=== PATIENT | female | born 1970 | race Caucasian/White ===

== ENCOUNTER 2020-03-19 15:19 | Outpatient (REF) | payer BC, SELFPAY ==
--- NOTE | 2020-03-19 14:00 | PAPFT_PTH ---
PATIENT: Carol Urbina LOC: TRAN U#:[id number] AGE/SX: 49/F ROOM: RE03/19/[address]: Camille Hadley NP : 1970 BED: DIS: 03/19/2020 SPEC #: [id number] RECD: 03/20/20 12:55 STATUS: BAHMAN CANTU #: [id number] FUNMILAYO: 03/19/20 14:[address]: Camille Hadley NP DEPT: [facility] Cytology RECD BY: Alannah Hernandez ENTERED: 03/20/20 12:55 SP TYPE: PAPFT BERNARD DR: Soha Minor Tissues: 1 - CX/ENDOCX FOR PAP SMEARS Procedures: PAP THIN PREP/UVM Screening HPV DNA PROBE Comments: [id number]
== END 2020-03-19 15:39 ==
LOC: LBN 15:19
PROVIDERS: PCP Nurse Practitioner; Visit Provider Nurse Practitioner Women's Health
DX: Z12.4 Encounter for screening for malignant neoplasm of cervix (principal); Z11.51 Encounter for screening for human papillomavirus (HPV)
CPT/HCPCS: 88142; 87624

== ENCOUNTER 2020-03-25 02:18 | Outpatient (CLI) | payer BC, SELFPAY ==
--- NOTE | 2020-03-25 13:00 | DI.MAMMO_ITS ---
EXAM: MG MAMMO SCREENING CLINICAL HISTORY: screening TECHNIQUE: Bilateral full field digital CC and MLO mammographic images were obtained with 3D tomosyn thesis and utilizing computer aided detection (CAD). COMPARISON: Available for comparison. FINDINGS: Masses/Architectural Distortion: None seen. Microcalcifications: No suspicious pleomorphic-type are seen. Skin Thickening/Nipple Retraction: None. IMPRESSION: 1. No significant interval change with no specific features of malignancy noted. 2. Unless there is more urgent need, screening mammography is recommended, as per [place] [employer] guidelines. BI-RADS Category 1 - Negative Breast Density - Category C - Heterogeneously dense The mammogram demonstrates the patient's breast tissue is dense. Dense breast tissue is very common a nd is not abnormal but dense breast tissue can make it harder to find cancer on a mammogram. Also, de nse breast tissue may increase their breast cancer risk. This information about the result of the [facility] mogram report was provided to the patient to raise their awareness. Use this report when you speak wi th the patient about their risks for breast cancer, which includes their family history. At that time , you may recommend for more screening tests (Ultrasound or MRI) as they might be useful based on the ir risk. A negative radiographic report should not delay biopsy if a dominant or clinically suspicious mass is present. Up to ten percent of cancers are not identified on mammography. A negative report may reinforce clinical impression. Adenosis and dense breasts may obscure an underlying neoplasm. False positive reports average 6 to 10%. Patient will receive a letter notifying them of these results.
== END 2020-03-25 02:38 ==
PROVIDERS: PCP Family Medicine; Visit Provider Nurse Practitioner Women's Health
DX: Z12.31 Encounter for screening mammogram for malignant neoplasm of breast (principal)
CPT/HCPCS: 77063; 77067

== ENCOUNTER 2020-06-26 14:22 | Outpatient (REF) | payer BC, SELFPAY ==
--- NOTE | 2020-06-26 14:00 | ENDOMET_PTH ---
PATIENT: Carol Urbina LOC: LBN U#:[id number] AGE/SX: 49/F ROOM: RE06/26/[address]: Camille Hadley NP : 1970 BED: DIS: 06/26/2020 SPEC #: [id number] RECD: 06/26/20 16:39 STATUS: BAHMAN REQ #: [id number] FUNMILAYO: 06/26/20 14:[address]: Camille Hadley NP DEPT: Surgical Specimen RECD BY: Alaina Puckett ENTERED: 06/26/20 16:40 SP TYPE: Endomet OTHR DR: Sherron Fry Tissues: 1 - ENDOMETRIUM BX/NITO Procedures: GROSS AND MICRO LEVEL 4 Comments: [id number]
== END 2020-06-26 14:42 ==
LOC: LBN 14:22
PROVIDERS: PCP Family Medicine; Visit Provider Nurse Practitioner Women's Health
DX: Z12.4 Encounter for screening for malignant neoplasm of cervix (principal); Z87.42 Personal history of other diseases of the female genital tract; N85.00 Endometrial hyperplasia, unspecified
CPT/HCPCS: 88305

== ENCOUNTER 2020-07-09 00:29 | Outpatient (CLI) | payer BC, SELFPAY ==
--- NOTE | 2020-07-09 07:45 | DI.US_ITS ---
EXAM: US PELVIS TRANSVAGINAL CLINICAL HISTORY: Mennorhagia, hx fibroids,N92.0. TECHNIQUE: Transabdominal and transvaginal pelvic ultrasound was performed using standard protocol. COMPARISON: US PELVIS TRANSVAG from 07/11/2013 FINDINGS: KIDNEYS: Kidneys are symmetric in size. No evidence of renal calculi. No evidence of hydronephrosis. No renal mass or cyst identified. UTERUS: Position: Retroverted Size: 11.4 long by 7.4 AP by 8.5 transverse cm Endometrium: 1.1 cm. Normal for patient's menstrual status. Myometrium: Numerous uterine fibroids are identified. The largest measured is 2.6 x 3.1 x 2.9 cm. Cervix: There does appear to be a 2.1 x 1.8 x 2.6 cm cervical fibroid. OVARIES: Right: 2.9 x 1.7 x 1.3 cm Cyst or mass: Small follicular cysts. Left: 4.2 x 2.3 x 2.5 cm Cyst or mass: 2.6 x 2.6 x 2.6 cm hypoechoic cyst with internal debris. This may represent a hemorrha gic cyst. DOPPLER: Color: Symmetric and uniform flow to both ovaries. No hyperemia. CUL-DE-SAC: Free fluid: Small amount of free pelvic fluid. Other: None. IMPRESSION: 1. Normal sonographic appearance of the kidneys. 2. Enlarged fibroid uterus. An MRI of the pelvis may also be considered to characterize the uterine fibroids. 3. 2.6 cm complex left ovarian cyst. This likely reflects a hemorrhagic cyst. DATA REPOSITORY:
== END 2020-07-09 00:49 ==
PROVIDERS: PCP Family Medicine; Visit Provider Nurse Practitioner Women's Health
DX: N92.0 Excessive and frequent menstruation with regular cycle (principal); D25.9 Leiomyoma of uterus, unspecified; N83.292 Other ovarian cyst, left side
CPT/HCPCS: 76830; 76856

== ENCOUNTER 2021-04-14 12:47 | Outpatient (REF) | payer BC, SELFPAY ==
--- NOTE | 2021-04-14 11:30 | PAPFT_PTH ---
PATIENT: Carol Urbina LOC: KUNAL U#:[id number] AGE/SX: 50/F ROOM: RE04/14/[address]: Camille Hadley NP : 1970 BED: DIS: 04/14/2021 SPEC #: [id number] RECD: 04/14/21 13:14 STATUS: BAHMAN CANTU #: [id number] FUNMILAYO: 04/14/21 11:[address]: Camille Hadley NP DEPT: [facility] Cytology RECD BY: Alannah Hernandez ENTERED: 04/14/21 13:15 SP TYPE: PAPFT OTHR DR: Sherron Fry Tissues: 1 - CX/ENDOCX FOR PAP SMEARS Procedures: PAP THIN PREP/UVM Screening HPV DNA PROBE Comments: [id number]
== END 2021-04-14 12:48 | disposition home or self-care (01) ==
LOC: LBN 12:47
PROVIDERS: PCP Family Medicine; Visit Provider Nurse Practitioner Women's Health
DX: Z12.4 Encounter for screening for malignant neoplasm of cervix (principal); Z11.51 Encounter for screening for human papillomavirus (HPV)
CPT/HCPCS: 88142; 87624

== ENCOUNTER 2021-04-16 01:32 | Outpatient (CLI) | payer BC, SELFPAY ==
--- NOTE | 2021-04-16 08:00 | DI.MAMMO_ITS ---
Exam(s) MAMMO SCREENING EXAM: MAMMO SCREENING CLINICAL HISTORY: screening, Z12.39. TECHNIQUE: Bilateral full field digital CC and MLO mammographic images were obtained with 3D tomosyn thesis and utilizing computer aided detection (CAD). COMPARISON: Prior mammograms dating back to 2013, the most recent being March 2020. FINDINGS: The fibroglandular tissue pattern is again noted be quite dense, this decreasing the sensitivity of t he mammogram for finding hidden underlying lesions. There are no new obvious spiculated masses nor malignant-appearing microcalcification groups in eithe r breast. A few benign microcalcifications are again noted. There is no significant architectural distortion nor skin thickening-retraction. IMPRESSION: Quite dense bilateral fibroglandular tissue. No obvious radiographic evidence of malignancy nor sign ificant change compared to prior studies listed above. Given the density of this patient's fibroglandular tissue I feel would be prudent to perform screenin g bilateral breast ultrasound. BI-RADS Category 2 - Benign Findings Breast Density - Category D - Extremely dense Breast density Category C or D implies that the patient has dense breast tissue. Dense breast tissue can make it harder to find cancer on a mammogram. Dense breast tissue is also associated with an incr eased risk of breast cancer. This information about the result of the mammogram report was provided to the patient to raise their awareness. Use this report when you speak with the patient about their risks for breast cancer, which includes their family history. At that time, you may recommend additional screening tests (Ultrasoun d or MRI) as these tests may add significant information. A negative radiographic report should not delay biopsy if a dominant or clinically suspicious mass is present. Up to ten percent of cancers are not identified on mammography. A negative report may reinforce clinical impression. Adenosis and dense breasts may obscure an underlying neoplasm. False positive reports average 6 to 10%. Patient will receive a letter notifying them of these results.
== END 2021-04-16 01:52 ==
PROVIDERS: PCP Family Medicine; Visit Provider Nurse Practitioner Women's Health
DX: Z12.31 Encounter for screening mammogram for malignant neoplasm of breast (principal); R92.8 Other abnormal and inconclusive findings on diagnostic imaging of breast
CPT/HCPCS: 77063; 77067

== ENCOUNTER → 2022-05-12 02:44 | Outpatient (CLI) | payer BC, SELFPAY ==
--- NOTE | 2022-05-12 07:39 | DI.MAMMO_ITS ---
Exam(s) MAMMO SCREENING EXAM: MAMMO SCREENING CLINICAL HISTORY: screening TECHNIQUE: Bilateral full field digital CC and MLO mammographic images were obtained with 3D tomosyn thesis and utilizing computer aided detection (CAD). COMPARISON: Available for comparison. FINDINGS: Masses/Architectural Distortion: None seen. Microcalcifications: No suspicious pleomorphic-type are seen. Skin Thickening/Nipple Retraction: None. IMPRESSION: 1. No significant interval change with no specific features of malignancy noted. 2. Unless there is more urgent need, screening mammography is recommended, as per [place] [employer] guidelines. BI-RADS Category 1 - Negative Breast Density - Category D - Extremely dense Breast density category C or D implies that the patient has dense breast tissue. Dense breast tissue is very common and is not abnormal but dense breast tissue can make it harder to find cancer on a ma mmogram. Also, dense breast tissue may increase their breast cancer risk. This information about the result of the mammogram report was provided to the patient to raise their awareness. Use this report when you speak with the patient about their risks for breast cancer, which includes their family hist ory. At that time, you may recommend for more screening tests (Ultrasound or MRI) as they might be us eful based on their risk. A negative radiographic report should not delay biopsy if a dominant or clinically suspicious mass is present. Up to ten percent of cancers are not identified on mammography. A negative report may reinforce clinical impression. Adenosis and dense breasts may obscure an underlying neoplasm. False positive reports average 6 to 10%. Patient will receive a letter notifying them of these results.
== END ==
PROVIDERS: PCP Family Medicine; Visit Provider Nurse Practitioner Women's Health
DX: Z12.31 Encounter for screening mammogram for malignant neoplasm of breast (principal)
CPT/HCPCS: 77063; 77067

== ENCOUNTER 2022-05-13 15:00 | Outpatient (REF) | payer BC, SELFPAY ==
[2022-05-13 15:36] LABS: Calculated LDL 158 mg/dL (<100); Cholesterol 275 mg/dL (<200); HDL Cholesterol 103 mg/dL (40-60); Triglyceride 72 mg/dL (<150)
== END 2022-05-13 15:01 | disposition home or self-care (01) ==
LOC: NCHCN 15:00
PROVIDERS: PCP Family Medicine; Visit Provider Family Medicine
DX: Z00.00 Encounter for general adult medical examination without abnormal findings (principal); Z13.220 Encounter for screening for lipoid disorders
CPT/HCPCS: 80061

== ENCOUNTER 2023-05-13 02:49 | Outpatient (CLI) | payer BC, SELFPAY ==
--- NOTE | 2023-05-13 07:33 | DI.MAMMO_ITS ---
Exam(s) MAMMO SCREENING EXAM: MAMMO SCREENING CLINICAL HISTORY: screening. TECHNIQUE: Bilateral full field digital CC and MLO mammographic images were obtained with 3D tomosyn thesis and utilizing computer aided detection (CAD). COMPARISON: Prior mammograms were reviewed. FINDINGS: The fibroglandular tissue pattern is again noted be quite dense which decreases the sensitivity of th e mammogram for finding hidden underlying lesions. There are no obvious new spiculated masses nor malignant appearing microcalcification groups. Benign-appearing microcalcifications are again noted bilaterally. There is no significant architectural distortion nor skin thickening-retraction. IMPRESSION: Dense bilateral fibroglandular tissue. No obvious radiographic evidence of malignancy. BI-RADS Category 1 - Negative Breast Density - Category D - Extremely dense Breast density Category C or D implies that the patient has dense breast tissue. Dense breast tissue can make it harder to find cancer on a mammogram. Dense breast tissue is also associated with an incr eased risk of breast cancer. This information about the result of the mammogram report was provided to the patient to raise their awareness. Use this report when you speak with the patient about their risks for breast cancer, which includes their family history. At that time, you may recommend additional screening tests (Ultrasoun d or MRI) as these tests may add significant information. A negative radiographic report should not delay biopsy if a dominant or clinically suspicious mass is present. Up to ten percent of cancers are not identified on mammography. A negative report may reinforce clinical impression. Adenosis and dense breasts may obscure an underlying neoplasm. False positive reports average 6 to 10%. Patient will receive a letter notifying them of these results.
== END 2023-05-13 03:09 ==
LOC: DI 02:49
PROVIDERS: PCP Family Medicine; Visit Provider Nurse Practitioner Women's Health
DX: Z12.31 Encounter for screening mammogram for malignant neoplasm of breast (principal)
CPT/HCPCS: 77063; 77067

== ENCOUNTER 2024-05-09 11:52 | Outpatient (REF) | payer BC, SELFPAY ==
--- NOTE | 2024-05-09 11:30 | PAPFT_PTH ---
PATIENT: Carol Urbina LOC: KUNAL U#:[id number] AGE/SX: 53/F ROOM: RE05/09/[address]: Camille Hadley NP : 1970 BED: DIS: 05/09/2024 SPEC #: [id number] RECD: 05/09/24 13:19 STATUS: BAHMAN CANTU #: [id number] FUNMILAYO: 05/09/24 11:[address]: Camille Hadley NP DEPT: [facility] Cytology RECD BY: Alannah Hernandez ENTERED: 05/09/24 13:19 SP TYPE: PAPFT OTHR DR: Sherron Fry Tissues: 1 - CX/ENDOCX FOR PAP SMEARS Procedures: PAP THIN PREP/UVM Screening HPV DNA PROBE Comments: [id number] (HPV 16 & 18/45)
== END 2024-05-09 11:53 | disposition home or self-care (01) ==
LOC: LBN 11:52
PROVIDERS: PCP Family Medicine; Visit Provider Nurse Practitioner Women's Health
DX: Z01.419 Encounter for gynecological examination (general) (routine) without abnormal findings (principal); D25.9 Leiomyoma of uterus, unspecified; Z12.4 Encounter for screening for malignant neoplasm of cervix
CPT/HCPCS: 88142; 87624

== ENCOUNTER 2025-05-30 01:38 | Outpatient (CLI) | payer OTHER, SELFPAY ==
--- NOTE | 2025-05-30 12:00 | DI.MAMMO_ITS ---
Exam(s) MAMMO SCREENING EXAM: MAMMO SCREENING CLINICAL HISTORY: screening TECHNIQUE: Bilateral full field digital CC and MLO mammographic images were obtained with 3D tomosynthesis and utilizing computer aided detection (CAD). COMPARISON: Comparison is made with prior examinations. FINDINGS: Masses/Architectural Distortion: No suspicious masses or areas of architectural distortion are present. Microcalcifications: No suspicious pleomorphic-type are seen. Skin Thickening/Nipple Retraction: None. IMPRESSION: 1. No significant interval change with no specific features of malignancy noted. 2. Unless there is more urgent need, screening mammography is recommended, as per [place] [employer] guidelines. BI-RADS Category 1 - Negative Breast Density - Category D - The breast are extremely dense, which lowers the sensitivity of the mammography. Breast density Category C or D implies that the patient has dense breast tissue. Dense breast tissue can make it harder to find cancer on a mammogram. Dense breast tissue is also associated with an increased risk of breast cancer. This information about the result of the mammogram report was provided to the patient to raise their awareness. Use this report when you speak with the patient about their risks for breast cancer, which includes their family history. At that time, you may recommend additional screening tests (Ultrasound or MRI) as these tests may add significant information. A negative radiographic report should not delay biopsy if a dominant or clinically suspicious mass is present. Up to ten percent of cancers are not identified on mammography. A negative report may reinforce clinical impression. Adenosis and dense breasts may obscure an underlying neoplasm. False positive reports average 6 to 10%. Patient will receive a letter notifying them of these results.
== END 2025-05-30 01:58 ==
LOC: DI 01:38
PROVIDERS: PCP Family Medicine; Visit Provider Nurse Practitioner Women's Health
DX: Z12.31 Encounter for screening mammogram for malignant neoplasm of breast (principal); R92.343 Mammographic extreme density, bilateral breasts
CPT/HCPCS: 77063; 77067

== ENCOUNTER 2025-06-12 16:53 | Outpatient (CLI) | payer OTHER, SELFPAY ==
[2025-06-12 16:53] LABS: Abs Immature Grans 0.01 10^3/uL (0.0-0.06); HCT 38.8 % (36.0-46.0); HGB 13.0 g/dL (11.2-15.7); Immature Grans % 0.2 %; MCH 31.1 pg (27.0-33.0); MCHC 33.5 % (32.0-36.0); MCV 93 fL (80-95); MPV 9.0 fL (8.0-11.0); Platelet Count 232 10^3/uL (130-400); RBC 4.18 10^6/uL (3.93-5.22); RDW 14.2 % (11.7-14.6); RDW-SD 48.7 fL; WBC 6.15 10^3/uL (4.4-10.8)
[2025-06-12 17:43] LABS: Iron 94 ug/dL (50-170); Total Iron Binding Capacity 316 ug/dL (250-450); Transferrin Sat 30 % (15-50)
== END 2025-06-12 16:54 | disposition home or self-care (01) ==
LOC: LBO 16:53
PROVIDERS: PCP Family Medicine; Visit Provider Obstetrics & Gynecology Gynecologic Oncology
DX: D21.9 Benign neoplasm of connective and other soft tissue, unspecified (principal); N93.9 Abnormal uterine and vaginal bleeding, unspecified
CPT/HCPCS: 36415; 83540; 83550; 85025